=== PATIENT | male | born 1995 | race Caucasian/White ===

== ENCOUNTER 2018-01-31 18:49 | Inpatient (IN) | payer OTHER ==
[~2018-01-31] VITALS: Ht 170.2 cm; Wt 81.6 kg
[2018-01-31 18:53] VITALS: BP 145/93
--- NOTE | 2018-01-31 19:00 | NUR ---
PT AMB TO BED 5
--- NOTE | 2018-01-31 19:04 | NUR ---
22 YO M BIB SELF W/ C/O RIGHT UPPER QUADRANT PAIN X TODAY. PT REPORTS THAT HE HAS HAD SOME N/V. DENIES CONSTIPATION OR DIARRHEA. DENIES HISTORY. DENIES TAKING ANY MEDICATIONS FOR UPSET STOMACH. DENIES ETOH INGESTION. DENIES DYSURIA OR BM DIFFICULTIES. PT AAOX4, GCS 15, CMS INTACT. RR EVEN AND UNLABORED. LUNGS BL CLEAR. ABD SOFT, NON-TENDER. BOWEL SOUNDS ACTIVE X 4. AMBULATORY W/ STEADY GAIT. ER MD NOTIFIED. PT NEEDS MET. SAFETY PRECAUTIONS IN PLACE. WILL CONTINUE TO MONITOR.
--- NOTE | 2018-01-31 19:17 | NUR ---
REPORT GIVEN TO RANJIT GARBER AT THIS TIME. TRANSFER OF CARE.
--- NOTE | 2018-01-31 19:24 | NUR ---
PT LAYING IN BED, GROANING, FACIAL GRIMACING.
--- NOTE | 2018-01-31 19:32 | NUR ---
FADUMO BLOUNT MADE AWARE OF PT STATUS.
[2018-01-31] MEDS ORDERED: KETOROLAC 60 MG/2 ML VIAL IM ONE (19:35)
[2018-01-31] MEDS ORDERED: KETOROLAC 30 MG/ML VIAL IVP ONE (19:40)
--- NOTE | 2018-01-31 20:11 | NUR ---
PT LAYING IN BED RESTING, COMFORT NEEDS MET, NO GROANING OR FACIAL GRIMACING NOTED AT THIS TIME.
[2018-01-31 20:13] LABS: HEMATOCRIT 46.2 % (36-52); HEMOGLOBIN 15.7 g/dL (12.0-18.0); MEAN CORPUSCULAR HEMOGLOBIN 32 pg (27-31); MEAN CORPUSCULAR HGB CONC 34 g/dL (33-37); MEAN CORPUSCULAR VOLUME 93.4 fL (80-94); PLATELET COUNT (AUTO) 358 K/uL (140-450); RED BLOOD CELL COUNT(AUTO) 4.95 MIL/uL (4.20-6.10); RED CELL DISTRIBUTION WIDTH 12.3 % (11.6-13.7); WHITE BLOOD COUNT (AUTO) 22.2 K/uL (4.8-10.8)
[2018-01-31 20:27] LABS: EOSINOPHILS % (MANUAL) 2 % (0-4); LYMPHOCYTES % (MANUAL) 19 % (20-46); MONOCYTES % (MANUAL) 4 % (5-12)
[2018-01-31 20:29] LABS: ANION GAP 15.7 (8-16); CREATININE 1.1 mg/dL (0.7-1.3); POTASSIUM 3.7 mmol/L (3.5-5.1)
[2018-01-31 20:33] LABS: ALBUMIN 4.7 g/dL (3.4-5.0); TOTAL BILIRUBIN 0.3 mg/dL (0.0-1.0)
--- NOTE | 2018-01-31 21:25 | NUR ---
Dr. Cordova evaluating patient at bedside.
[2018-01-31] MEDS ORDERED: MORPHINE SULFATE 4 MG/ML SYR IVP ONE (21:30)
--- NOTE | 2018-01-31 21:47 | NUR ---
PT RETURN FROM CT
[2018-01-31] MEDS ORDERED: PIPERACILLIN/TAZOBACTAM 3.375 GM in DEXTROSE 5% 50 ML IV ONE (22:30)
[2018-01-31] MEDS ORDERED: ONDANSETRON 4 MG/2 ML VIAL IVP PRN (22:45)
[2018-01-31] MEDS ORDERED: ACETAMINOPHEN 325 MG TAB PO PRN (22:45)
[2018-01-31] MEDS ORDERED: DEXT 5% / NACL 0.45% 1,000 ML IV SCH (22:45)
[2018-01-31] MEDS ORDERED: PIPERACILLIN/TAZOBACTAM 3.375 GM VIAL IV ONE (22:47)
--- NOTE | 2018-01-31 23:05 | NUR ---
Patient will be admitted to care of DR ZHENG. Admited to MED SURG. Will go to room 106-A. Belongings list completed. Report to RANJIT JOHANSEN.
[2018-01-31 23:10] VITALS: BP 122/75
--- NOTE | 2018-01-31 23:10 | NUR ---
ADMITTED A 22M FROM ER, CAME BY WHEELCHAIR DUE TO RUQ ABDOMINAL PAIN,WITH CHILL AT HOME. MED SURG PT. AWAKE,ALERT AND ORIENTED X4. AMBULATORY. WITH NO OTHER MEDICAL PROBLEM EXCEPT FOR RT ARM SURGERY DUE TO FRACTURE WHEN STILL 5 YRS OLD. SKIN INTACT. HAS ZOSYN IVPB STILL INFUSING WELL ON THE RT AC G#20. INSTRUCTED PT DIET OF NPO EXCEPT MEDS. MOM AND DAD CAME . ORIENTED TO HOSPITAL ROUTINE. PLAN OF CARE DISCUSSED AND VERBALIZED UNDERSTANDING. BED ON LOW POSITION. CALL LIGHT PLACED WITHIN EASY REACH. WILL CONTINUE TO MONITOR.
[2018-01-31] MEDS: MORPHINE SULFATE 2 MG/ML SYR IVP PRN (23:59)
[2018-02-01] VITALS (12 sets, daily range): BP systolic 119–132; BP diastolic 66–80
--- NOTE | 2018-02-01 01:28 | NUR ---
PT ASLEEP. NO S/S OF ANY DISCOMFORT NOR PAIN NOTED AT THIS TIME.
--- NOTE | 2018-02-01 04:00 | NUR ---
AWAKE. CONSENT FOR SURGERY ,BLOOD TRANSFUSION CONSENT SIGNED BY PT.
[2018-02-01] MEDS: MORPHINE SULFATE 2 MG/ML SYR IVP PRN ×2 (04:22→10:41)
--- NOTE | 2018-02-01 04:30 | NUR ---
ROSALIERN SUPPLY CHAIN CONSULTANT SAID PT IS SCHEDULED FOR 0730 SURGERY THIS AM. PT MADE AWARE AND VERBALIZED UNDERSTANDING.
--- NOTE | 2018-02-01 06:05 | NUR ---
PRE OP BATH DONE. SCD BLE IN PLACED.
--- NOTE | 2018-02-01 06:24 | NUR ---
PT HAS BEEN NPO. LAST FOOD TAKEN YESTERDAY 1500.
[2018-02-01 07:08] LABS: HEMATOCRIT 42.9 % (36-52); HEMOGLOBIN 14.8 g/dL (12.0-18.0); MEAN CORPUSCULAR HEMOGLOBIN 32 pg (27-31); MEAN CORPUSCULAR HGB CONC 35 g/dL (33-37); MEAN CORPUSCULAR VOLUME 92.8 fL (80-94); PLATELET COUNT (AUTO) 278 K/uL (140-450); RED BLOOD CELL COUNT(AUTO) 4.63 MIL/uL (4.20-6.10); RED CELL DISTRIBUTION WIDTH 12.6 % (11.6-13.7)
--- NOTE | 2018-02-01 07:18 | NUR ---
ENDORSED PT IN STABLE CONDITION TO AM NURSE FOR CONTINUITY OF CARE.
--- NOTE | 2018-02-01 07:20 | NUR ---
RECEIVED BEDSIDE REPORT FROM ZIPPER SEWING MACHINE OPERATOR NURSE. PATIENT IS AWAKE, ALERT AND ORIENTEDX4. NO SIGNS OF DISTRESS ON ROOM AIR. HE IS AMBULATORY, SKIN IS INTACT. IV ON R AC 20G INFUSING D5 1/2 NS AT 50ML/HR. IV IS CLEAN, DRY AND INTACT. VITALS ARE WITHIN NORMAL LIMITS. MOM AT BEDSIDE. PATIENT LEAVING FOR SURGERY AT 0730. WILL CONTINUE TO MONITOR THE PATIENT. BED IN LOW POSITION. CALL LIGHT WITHIN REACH. WILL CONTINUE TO MONITOR THE PATIENT
--- NOTE | 2018-02-01 07:30 | NUR ---
REPORT GIVEN TO OR NURSE. PATIENT LEFT IN STABLE CONDITION.
[2018-02-01 07:31] LABS: ANION GAP 11.7 (8-16); CREATININE 1.1 mg/dL (0.7-1.3); POTASSIUM 3.7 mmol/L (3.5-5.1)
[2018-02-01 07:35] LABS: PROTHROMBIN TIME 9.9 secs (10.8-13.4)
[2018-02-01] MEDS ORDERED: PROPOFOL 200 MG/20 ML VIAL IV ONE (07:39)
[2018-02-01] MEDS ORDERED: DESFLURANE 240 ML BTL INH ONE (07:39)
[2018-02-01] MEDS ORDERED: ROCURONIUM 50 MG/5 ML VIAL IV ONE (07:39)
[2018-02-01] MEDS ORDERED: SUCCINYLCHOLINE CHLORIDE 200 MG/10 ML VIAL IV ONE (07:39)
[2018-02-01] MEDS ORDERED: ONDANSETRON 4 MG/2 ML VIAL IVP ONE (07:39)
[2018-02-01] MEDS ORDERED: BUPIVACAINE-MPF/EPI 0.25% 30 ML VIAL INJ ONE (07:39)
[2018-02-01] MEDS ORDERED: DEXAMETHASONE 4 MG/ML VIAL IVP ONE (07:39)
[2018-02-01 07:45] LABS: WHITE BLOOD COUNT (AUTO) 22.8 K/uL (4.8-10.8)
[2018-02-01 07:46] LABS: LYMPHOCYTES % (MANUAL) 8 % (20-46); MONOCYTES % (MANUAL) 7 % (5-12)
[2018-02-01] MEDS ORDERED: fentaNYL 0.05 MG/ML VIAL ONE (07:47)
[2018-02-01] MEDS ORDERED: HYDROmorphone PFS 2 MG/ML SYR ONE (07:47)
[2018-02-01] MEDS ORDERED: ONDANSETRON 4 MG/2 ML VIAL IVP PRN (08:35)
[2018-02-01] MEDS ORDERED: HYDROmorphone 1 MG/ML AMP IVP PRN (08:35)
[2018-02-01] MEDS: HYDROmorphone PFS 2 MG/ML SYR ONE ×2 (08:47→08:57)
--- NOTE | 2018-02-01 08:52 | NUR ---
PATIENT HAS BEEN SCREENED AND CATEGORIZED LOW NUTRITION RISK. PATIENT WILL BE SEEN WITHIN 7 DAYS OF ADMISSION. 02/07/18 Ruth Morataya MBA, RD
--- NOTE | 2018-02-01 09:25 | NUR ---
RECEIVED BEDSIDE REPORT FROM OR NURSE. PATIENT BACK IN STABLE CONDITION. 3 INCISIONS ARE CLEAN AND INTACT. SCANT BLEEDING NOTED. WILL CONTINUE TO MONITOR, VITALS ARE WITHIN NORMAL LIMITS
--- NOTE | 2018-02-01 10:42 | NUR ---
ADMINISTERED PRN PAIN MED. PATIENT TOLERATED WELL. WILL CONTINUE TO MONITOR THE PATIENT
[2018-02-01] MEDS: HYDROcodone/APAP 5/325 MG 1 TAB TAB PO PRN ×2 (12:29→16:31)
--- NOTE | 2018-02-01 12:33 | NUR ---
ADMINISTERED PRN PAIN MED. PATIENT TOLERATED WELL. GAVE PATIENT CLEAR LIQ TRAY. IF HE TOLERATES WELL DR SAID OK FOR DC. AWAITING PATIENT TO PASS GAS ALSO. ENCOURAGED PATIENT BUT HE SAID HE DOES NOT NEED TO PASS GAS AT THE MOMENT. WILL CONTINUE TO MONITOR THE PATIENT
--- NOTE | 2018-02-01 14:00 | NUR ---
PATIENT AMBULATED AROUND THE CAMERON. HE TOLERATED WELL. STILL WAITING ON HIM TO PASS GAS. WILL CONTINUE TO MONITOR THE PATIENT
--- NOTE | 2018-02-01 16:32 | NUR ---
ADMINISTERED PRN PAIN MEDS. PATIENT AMBULATED AROUND THE HALLS AGAIN AND FEELS PAIN. BED IN LOW POSITION. HE IS ASKING FOR ABDOMINAL BINDER. WILL GET PATIENT A BINDER
--- NOTE | 2018-02-01 16:46 | NUR ---
PALACED ABDOMINAL BINDER. PATIENT STATES IT FEELS BETTER. WILL CONTINUE TO MONITOR
[2018-02-01] MEDS ORDERED: PIPER/TAZO 3.375GM/D5W PREMIX 50 ML IV SCH (17:35)
[2018-02-01] MEDS ORDERED: ACET-2869 PO (17:45)
[2018-02-01] MEDS ORDERED: AMOX-999 PO (17:47)
[2018-02-01] MEDS ORDERED: PIPERACILLIN/TAZOBACTAM 3.375 GM VIAL IV ONE (17:48)
--- NOTE | 2018-02-01 17:58 | NUR ---
DR BURGESS SAID TO GIVE A DOSE OF ZOSYN AND PATIENT CAN LEAVE AFTER. ZOSYN INFUSING NOW. WILL CONTINUE TO MONITOR THE PATIENT
--- NOTE | 2018-02-01 18:32 | NUR ---
EDUCATED PATIENT ON DISEASE PROCESS, ABN S/SX OF WOUND, HOW TO CARE FOR WOUND, FOLLOW UP W DR BURGESS, GAVE DR BURGESS PHONE NUMBER AND CARD, EDUCATED ON MEDS, GAVE PRESCRIPTION, PATIENT VERBALIZED UNDERSTANDING. ALL PAPERWORK SIGNED. PATIENT NOT A CANDIDATE FOR VACCINES AT THIS TIME. WILL CONTINUE TO MONITOR THE PATIENT. UNABLE TO TAKE PHOTOS OF SURGICAL WOUND BECAUSE UNABLE TO REMOVE DRESSINGS UNTIL AFTER 24 HRS OF SURGERY
--- NOTE | 2018-02-01 19:00 | NUR ---
REMOVED IV. IV TIP IS INTACT. ID BANDS REMOVED. PATIENT LEFT WITH ALL BELONGINGS AND WALKED OUT IN STABLE CONDITION.
--- NOTE | 2018-02-04 14:24 | NUR ---
RETRO ER DR'S NOTE, H&P, CONSULTATION REPORT, OPERATIVE REPORT PATIENT VISIT REPORT FAXED TO [facility] [phone] [facility] # [phone]
== END 2018-02-01 19:00 | disposition home or self-care (01) | DRG 234 ==
LOC: MED 18:49 → MMU 22:56 → MTU 23:04
PROVIDERS: ADMIT Hospitalist; ATTEND Hospitalist
PROC: 0DTJ4ZZ Resection of Appendix, Percutaneous Endoscopic Approach (ICD-10-PCS; principal; 2018-02-01 07:30)
DX: K35.80 Unspecified acute appendicitis (principal); D72.829 Elevated white blood cell count, unspecified
CPT/HCPCS: 36415; 80048; 80053; 82374; 83690; 85025; 85610; 85730; 86886; 86900; 86901; 87040; 87081; 88304; 93005; 96374; 96375; 99285; J0330; J1100; J1170; J1885; J2270; J2405; J2543; J2704; J3010; J3490; J7030; J7060

== ENCOUNTER 2018-02-02 09:08 | Emergency (ER) | payer OTHER ==
[~2018-02-02] VITALS: Ht 170.2 cm; Wt 77.1 kg
[~2018-02-02 09:08] MED LIST: ACET-2869 PO; AMOX-999 PO
[2018-02-02 09:13] VITALS: BP 149/106
[2018-02-02] MEDS ORDERED: MORPHINE SULFATE 4 MG/ML SYR IM ONE (09:25)
[2018-02-02] MEDS: ONDANSETRON 4 MG ODT PO ONE (09:35)
[2018-02-02] MEDS: ONDANSETRON 4 MG/2 ML VIAL IVP ONE (09:52)
[2018-02-02] MEDS: MORPHINE SULFATE 4 MG/ML SYR IVP ONE ×2 (09:57→11:03)
[2018-02-02] MEDS: NACL 0.9% 1,000 ML IV ONE (09:58)
[2018-02-02 12:00] VITALS: BP 132/86
== END 2018-02-02 12:00 | disposition home or self-care (01) ==
LOC: MED 09:08
DX: G89.18 Other acute postprocedural pain (principal); R10.31 Right lower quadrant pain; R11.2 Nausea with vomiting, unspecified
CPT/HCPCS: 96361; 96374; 96375; 96376; 99284; J2270; J2405; J7030

== ENCOUNTER 2023-03-02 10:23 | Emergency (ER) | payer OTHER ==
[~2023-03-02] VITALS: Ht 170.2 cm; Wt 72.6 kg
[~2023-03-02 10:23] MED LIST changes: -ACET-2869 PO; +HYDR-5122 PO
[2023-03-02 10:49] VITALS: BP 111/58; PULSE 115; RESP 18; TEMP 98.3; O2SAT 99
[2023-03-02] MEDS ORDERED: ONDANSETRON 4 MG/2 ML VIAL IVP ONE (11:00)
[2023-03-02] MEDS ORDERED: NACL 0.9% 2,000 ML IV ONE (11:00)
[2023-03-02 11:14] LABS: BASOPHILS % (AUTO) 0.2 % (0.0-2.0); EOSINOPHILS # (AUTO) 0.1 K/uL (0-0.4); EOSINOPHILS % (AUTO) 0.5 % (0.0-4.0); HEMATOCRIT 45.2 % (36-52); HEMOGLOBIN 15.5 g/dL (12.0-18.0); LYMPHOCYTES # (AUTO) 2.1 K/uL (2.0-11.5); LYMPHOCYTES % (AUTO) 11.2 % (20.5-51.1); MEAN CORPUSCULAR HEMOGLOBIN 31 pg (27-31); MEAN CORPUSCULAR HGB CONC 34 g/dL (33-37); MEAN CORPUSCULAR VOLUME 89.1 fL (80-94); MONOCYTES # (AUTO) 0.9 K/uL (0.8-1.0); MONOCYTES % (AUTO) 4.6 % (1.7-9.3); NEUTROPHILS % (AUTO) 83.5 % (42.2-75.2); PLATELET COUNT (AUTO) 541 K/uL (140-450); RED BLOOD CELL COUNT(AUTO) 5.07 MIL/uL (4.20-6.10); RED CELL DISTRIBUTION WIDTH 13.3 % (11.6-13.7); WHITE BLOOD COUNT (AUTO) 19.1 K/uL (4.8-10.8)
[2023-03-02 11:38] LABS: ALBUMIN 5.4 g/dL (3.4-5.0); ANION GAP 23.4 (8-16); CALCIUM 10.5 mg/dL (8.5-10.1); CARBON DIOXIDE 19.4 mmol/L (21-32); CREATININE 1.2 mg/dL (0.6-1.3); POTASSIUM 3.8 mmol/L (3.5-5.1); TOTAL BILIRUBIN 0.6 mg/dL (0.0-1.0); TOTAL PROTEIN, SERUM 9.4 g/dL (6.4-8.2)
[2023-03-02] MEDS ORDERED: cefTRIAXone 1,000 MG VIAL ONE (12:28)
[2023-03-02] MEDS ORDERED: METOCLOPRAMIDE 10 MG/2 ML INJ VIAL IVP ONE (12:40)
[2023-03-02] MEDS ORDERED: ONDA-188 SL (13:28)
[2023-03-02 14:09] VITALS: BP 124/67; PULSE 72; RESP 15; TEMP 97.8; O2SAT 100
== END 2023-03-02 13:30 | disposition left against medical advice (07) ==
LOC: MED 10:23
DX: R11.2 Nausea with vomiting, unspecified (principal); Z79.899 Other long term (current) drug therapy
CPT/HCPCS: 36415; 71045; 74177; 80053; 83605; 83690; 85025; 96361; 96365; 96375; 99285; J0696; J2405; J2765; Q9967